=== PATIENT | female | born 1960 | race Caucasian/White ===

== ENCOUNTER → 2018-07-14 | Outpatient (CLI) | payer BC ==
[~2018-07-14] MED LIST: ALPR-429 PO; HYDR-2966 PO; IOPAMIDOL 76% 100 ML INFUS BTL 100 ML ONE; IOPAMIDOL 76% 50 ML INFUS BTL 50 ML ONE; LEVO75TA73 PO; LISD20TA; NS(*) 0.9% 50 ML BAG 50 ML ONE; POTA20TA12; ZOLP-350 PO
--- NOTE | 2018-07-14 13:58 | RADIOLOGY IMAGING REPORT ---
FACILITY: [facility] PATIENT NAME: Saida Copeland : 1960 MR: [id number] V: [id number] EXAM DATE: ORDERING PHYSICIAN: SLADE LAW TECHNOLOGIST: Location: [facility] Patient: Saida Copeland : 1960 Visit/Account:[id number] Date of Sevice: 07/14/2018 CT ABDOMEN PELVIS W & W/O CONTRAST HISTORY: kidney stone TECHNIQUE: Axial images acquired through the abdomen/pelvis both with and without IV contrast.. Lilly nal and sagittal reformatting also performed.Dose Lowering Technique One of the following dose optimization techniques was utilized in the performance of this exam: Autom ated exposure control; adjustment of the mA and/or kV according to the patient's size; or use of an i terative reconstruction technique. Specific details can be referenced in the facility's radiology C T exam operational policy. CONTRAST: 125 mL Isovue-370 COMPARISON: Renal ultrasound July 10, 2018 FINDINGS: Visualized lung bases: Negative. Hepatobiliary: There is diffuse hepatic steatosis. Postsurgical changes from a cholecystectomy Spleen: Negative. Adrenals: Negative. Pancreas: Negative. Kidneys ureters and bladder: There is a 3 mm medullary calcification interpolar region of the right k idney. There is a 1 mm nonobstructing calculus upper pole calyx of the left kidney. There is mild p yelocaliectasis bilaterally . Genitalia: Hysterectomy GI: Negative. Vessels/spaces/nodes: There are mild vascular calcifications in the abdominal aorta and branch vesse ls Bones/soft tissues: Multiple Schmorl's nodes are noted in the visualized thoracal lumbar spine in ad dition to spondylotic changes which are most prominent at L5-S1 Additional findings: None pertinent. IMPRESSION: There is a 3 mm medullary calcification interpolar region of the right kidney 1 mm nonobstructing calculus upper pole calyx of the left kidney There is mild pyelocaliectasis bilaterally. Diffuse hepatic steatosis Cholecystectomy and hysterectomy Report Dictated By: Stefania Owen MD at 07/14/2018 1:45 PM Report E-Signed By: Stefania Owen MD at 07/14/2018 1:54 PM WSN:[email or web address]
== END ==
LOC: CT 07:04
PROVIDERS: ATTEND Urology
DX: N20.0 Calculus of kidney (principal); N13.30 Unspecified hydronephrosis; K76.0 Fatty (change of) liver, not elsewhere classified; Z90.49 Acquired absence of other specified parts of digestive tract; Z90.710 Acquired absence of both cervix and uterus
CPT/HCPCS: 74178; J7050; Q9967

== ENCOUNTER → 2018-07-30 | Outpatient (CLI) | payer BC ==
[~2018-07-30] MED LIST changes: -IOPAMIDOL 76% 100 ML INFUS BTL 100 ML ONE; -IOPAMIDOL 76% 50 ML INFUS BTL 50 ML ONE; -NS(*) 0.9% 50 ML BAG 50 ML ONE
--- NOTE | 2018-07-30 16:01 | RADIOLOGY IMAGING REPORT ---
FACILITY: [facility] PATIENT NAME: Saida Copeland : 1960 MR: [id number] V: [id number] EXAM DATE: ORDERING PHYSICIAN: JOSE MARIA REZA TECHNOLOGIST: Location: [facility] [place] Patient: Saida Copeland : 1960 Visit/Account:[id number] Date of Sevice: 07/30/2018 CHEST PA LAT History: Check up. FINDINGS: Comparison studies: None. Tubes and Lines: None. Lungs and pleura: Well aerated. No evidence of focal consolidation or pleural effusions. Mediastinum: normal. Cardiac silhouette: normal . Osseous structures: Anterior cervical fusion plate noted. IMPRESSION: Normal chest Report Dictated By: Gerardo Allen MD at 07/30/2018 3:55 PM Report E-Signed By: Gerardo Allen MD at 07/30/2018 3:56 PM WSN:[id number]
== END ==
LOC: RAD 13:39
PROVIDERS: ATTEND Surgery
DX: Z00.00 Encounter for general adult medical examination without abnormal findings (principal); Z20.1 Contact with and (suspected) exposure to tuberculosis
CPT/HCPCS: 71046

== ENCOUNTER 2018-10-28 01:55 | Day surgery (SDC) | payer BC ==
[~2018-10-28] VITALS: Ht 172.7 cm; Wt 81.2 kg
[~2018-10-28 01:55] MED LIST changes: +ALB18R IH; +ALBU8.5H IH; +AMOX-559 PO; +ATOR40TA24 PO; +CHOL10005 PO; +LIDOCAINE/SOD BICARB 8.4% SYR ID ONE; +LISD20TA PO; +NORMOSOL R SOLN(*) 1000 ML BAG 1,000 ML IV PRN; +POTA-35 PO; +ROSU10TA5 PO; +SCOP1PAT16; +SCOP1PAT16 TOP; +UBID100C48 PO; +ZINC50TA43 PO
[2018-10-28 06:14] VITALS: BP 119/64
[2018-10-28] MEDS ORDERED: SCOPOLAMINE 1.5 MG PATCH TD ONE (06:20)
[2018-10-28] MEDS ORDERED: NORMOSOL R SOLN(*) 1000 ML BAG 1,000 ML IV PRN (06:30)
[2018-10-28] MEDS ORDERED: LIDOCAINE/SOD BICARB 8.4% SYR ID ONE (06:30)
[2018-10-28] MEDS ORDERED: GLYCOPYRROLATE 0.2MG/ML 1 ML INJ ONE (07:20)
[2018-10-28] MEDS ORDERED: LIDOCAINE MPF 1% 5 ML VIAL ONE (07:24)
[2018-10-28] MEDS ORDERED: PROPOFOL EMUL(*) 10MG/ML 20 ML 60 ML ONE (07:24)
[2018-10-28] MEDS ORDERED: ONDANSETRON 4 MG/2 ML VIAL ONE (07:27)
[2018-10-28 08:27] VITALS: BP 111/77
[2018-10-28] MEDS ORDERED: PROPOFOL EMUL(*) 10MG/ML 20 ML 20 ML ONE (08:40)
--- NOTE | 2018-10-28 08:41 | Short(Outpt) Discharge Summary ---
Discharge Summary Reason for Hosp/Final Diag: (1) Dysphagia Hospital Course & Plan: pt presented for egd and colonoscopy. she tolerated the procedures well. she will be discharged home when criteria met. Departure Discharge to: Home Discharge Instructions Home Meds Active Scripts Lisdexamfetamine Dimesylate (Vyvanse) 20 Mg Tab.chew, 1 TAB PO DAILY, #30 TAB 0 Refills May fill on or after 11/24/18 Prov:SAV AGUIRRE APRN-King 09/25/18 Potassium Citrate (POTASSIUM CITRATE) 10 Meq Tablet.er, 1 TAB PO BID, #180 TAB 1 Refill Prov:SAV AGUIRRE APRN-King 09/25/18 Rosuvastatin Calcium (Rosuvastatin Calcium) 10 Mg Tablet, 1 TAB PO DAILY, #90 TAB 1 Refill Prov:SAV AGUIRRE APRN-King 09/25/18 Amoxicillin/Pot Clav 875-125 Mg Tab (AUGMENTIN 875-125 TABLET) 1 Each Tablet, 1 TAB PO Q12H, #20 TAB 0 Refills Prov:SAV AGUIRRE APRN-King 09/25/18 Scopolamine (Scopolamine) 1 Mg/3 Day Patch.td.3, 1 PATCH TOP q72, #4 PATCH 0 Refills Prov:SAV AGUIRRE APRN 09/25/18 Levothyroxine Sodium (LEVOTHYROXINE SODIUM) 75 Mcg Tablet, 75 MCG PO QDAY, #90 TAB 1 Refill Prov:SAV AGUIRRE APRN 09/25/18 Hydrochlorothiazide (HYDROCHLOROTHIAZIDE) 25 Mg Tablet, 1 TAB PO QDAY, #90 TAB 1 Refill Prov:SAV AGUIRRE APRN-King 09/25/18 Reported Medications Albuterol Sulfate (VENTOLIN HFA) 18 Gm Inh, 2 PUFF IH Q4H PRN for WHEEZING, BOTTLE 09/25/18 Cholecalciferol (Vitamin D3) (VITAMIN D3) 1,000 Unit Tablet, 8000 UNIT PO QDAY, TAB 09/03/18 Zinc Gluconate (ZINC) 50 Mg Tablet, 50 MG PO QDAY 09/03/18 Ubidecarenone (COQ-10) 100 Mg Capsule, 200 MG PO QDAY, CAPSULE 3/6/19 Alprazolam (XANAX) 0.5 Mg Tablet, 0.5-2 TAB PO QDAY PRN for ANXIETY, TAB Take 1/2 to 2 abs by mouth daily as needed for Anxiety 07/11/18 Diet: Regular Activity: As Tolerated Special Instructions: we will call you in 10 days with biopsy results. JOSE MARIA REZA Oct 28, 2018 08:41
[2018-10-28] MEDS ORDERED: ACETAMINOPHEN 500 MG TAB PO ONE (08:55)
[2018-10-28 09:00] VITALS: BP 128/98
[2018-10-28 09:26] VITALS: BP 125/98
[2018-10-28 09:28] VITALS: BP 119/93
--- NOTE | 2018-10-28 10:10 | NUR ---
0827 PT REC'D IN SD BY Marleny MONTALVO, RN, SBAR SOON GIVEN TO Max TERRELL RN, PT RESTING, VSS 0850 APPLE JUICE 0900 VSS, PT WOULD LIKE TO CONTINUE RESTING WHILE TOLERATING APPLE JUICE AND REQUESTING SOMETHING FOR HR HEADACHE, MEDICATED 0908 DR. REZA AT BEDSIDE TO DISCUSS FINDINGS 0921 PT REQUESTING MORE APPLE JUICE 0930 VSS, PT STATES HEADACHE HAS IMPROVED 0940 IV OUT, D/C INSTRUCTIONS COVERED, ALL QUESTIONS ANSWERED 0950 PT TOLERATING MORE APPLE JUICE AND LIBIA WAGNER 0955 PT OUT TO FRIEND'S CAR WITH Jose STANTON, RN, STEADY ON FEET, ALL BELONGINGS WITH PT
== END 2018-10-28 09:55 | disposition home or self-care (01) ==
LOC: OR 01:55
PROVIDERS: ATTEND Surgery
DX: K29.70 Gastritis, unspecified, without bleeding (principal); Z86.010 Personal history of colon polyps; K56.2 Volvulus
CPT/HCPCS: 00813; 43239; 45378; 87077; 88305; 88342; J2001; J2405; J2704; J3490